=== PATIENT | female | born 1955 | race Caucasian/White ===

== ENCOUNTER → 2017-05-12 | Outpatient (CLI) | payer MEDICARE ==
[2017-05-12 19:40] LABS: THYROID STIMULATING HORMONE 3.16 uIU/mL (0.34-5.60)
== END ==
LOC: LAB.R 08:00
PROVIDERS: ATTEND Family Medicine
DX: R63.4 Abnormal weight loss (principal)
CPT/HCPCS: 36415; 84439; 84443; 84481; G0475; 84436; 84480; 87389

== ENCOUNTER 2017-07-15 11:20 | Outpatient (CLI) | payer MEDICARE ==
[2017-07-16 18:46] LABS: TEST RESULT REPORT
== END 2017-07-15 11:21 | disposition home or self-care (01) ==
LOC: LAB.R 11:20
PROVIDERS: ATTEND Family Medicine
DX: R19.7 Diarrhea, unspecified (principal)
CPT/HCPCS: 81599; 83630; 87045; 87046; 87177; 87209; 87329; 87493

== ENCOUNTER 2018-02-09 08:00 | Outpatient (CLI) | payer MEDICARE ==
[2018-02-09 18:59] LABS: MEAN CORPUSCULAR HEMOGLOBIN 29.3 pg (27.0-31.0); MEAN CORPUSCULAR HGB CONC 32.1 g/dL (32.0-36.0); MEAN CORPUSCULAR VOLUME 91.2 fL (81.0-99.0); MEAN PLATELET VOLUME 8.3 fL (7.9-10.8); RED BLOOD COUNT 4.11 10^6/uL (4.20-5.40); RED CELL DISTRIBUTION WIDTH 15.2 % (12.0-15.0); WHITE BLOOD COUNT 9.5 x10^3/uL (4.8-10.8)
[2018-02-09 19:27] LABS: RHEUMATOID FACTOR POSITIVE (Negative)
== END 2018-02-09 08:01 | disposition home or self-care (01) ==
LOC: LAB.WCP 08:00
PROVIDERS: ATTEND Family Medicine
DX: M25.462 Effusion, left knee (principal); M79.7 Fibromyalgia; M06.9 Rheumatoid arthritis, unspecified
CPT/HCPCS: 36415; 85027; 85651; 86140; 86200; 86430

== ENCOUNTER 2021-05-29 10:35 | Outpatient (CLI) | payer MEDICARE ==
[2021-05-29 17:45] LABS: BASOPHILS # (AUTO) 0.1 10^3/uL (0.0-0.1); BASOPHILS % (AUTO) 0.8 %; EOSINOPHILS # (AUTO) 0.1 10^3/uL (0.0-0.7); EOSINOPHILS % (AUTO) 0.6 %; HCT - HEMATOCRIT 40.7 % (37.0-47.0); HGB - HEMOGLOBIN 12.1 g/dL (12.0-16.0); LYMPHOCYTES # (AUTO) 1.6 10^3/uL (1.5-3.5); LYMPHOCYTES % (AUTO) 20.5 %; MEAN CORPUSCULAR HEMOGLOBIN 31.7 pg (27.0-31.0); MEAN CORPUSCULAR HGB CONC 29.7 g/dL (32.0-36.0); MEAN CORPUSCULAR VOLUME 106.5 fL (81.0-99.0); MEAN PLATELET VOLUME 11.2 fL (7.9-10.8); MONOCYTES # (AUTO) 0.5 10^3/uL (0.0-1.0); MONOCYTES % (AUTO) 6.8 %; NEUTROPHILS # (AUTO) 5.7 10^3/uL (1.5-6.6); PLT - PLATELET COUNT 413 10^3/uL (130-450); RED BLOOD COUNT 3.82 10^6/uL (4.20-5.40); RED CELL DISTRIBUTION WIDTH 17.2 % (12.0-15.0)
[2021-05-29 18:35] LABS: ALBUMIN 3.3 g/dL (3.2-5.5); ALBUMIN/GLOBULIN RATIO 0.7 (1.0-2.2); BILIRUBIN,TOTAL 0.5 mg/dL (0.2-1.0); CALCIUM 8.8 mg/dL (8.5-10.3); CREATININE 0.5 mg/dL (0.4-1.0); CRP - C-REACTIVE PROTEIN 5.6 mg/dL (0-1.0); POTASSIUM 4.1 mmol/L (3.5-5.0); TOTAL PROTEIN 8.3 g/dL (6.7-8.2)
== END 2021-05-29 23:59 | disposition home or self-care (01) ==
LOC: LAB.WCP 10:35
PROVIDERS: ATTEND Family Medicine
DX: M06.9 Rheumatoid arthritis, unspecified (principal)
CPT/HCPCS: 36415; 80053; 85025; 85651; 86140

== ENCOUNTER 2021-07-09 16:16 | Outpatient (CLI) | payer MEDICARE, MEDICAID ==
--- NOTE | 2021-07-10 10:47 | XRAY Report ---
PROCEDURE: Foot 2 View BILAT INDICATIONS: RHEUMATOID ARTHRITIS TECHNIQUE: A standing AP view of both feet together as well as lateral views of each foot were acqui red. COMPARISON: Correlation is made with the accompanying plain films, 07/09/2021. FINDINGS: Bones: No fractures or dislocations. There is moderate to prominent left-sided hallux valgus deform ity. Numerous areas of erosions can be seen, particularly involving the metatarsophalangeal joints, partic ularly involving the fourth and fifth metatarsophalangeal joints of the right foot. Periarticular ost eopenia can be seen. An accessory ossicle is seen, an os trigonum on the right. Soft tissues: No tibiotalar joint effusion. Achilles tendon appears normal. IMPRESSION: Erosive changes are seen, consistent with rheumatoid arthritis. Reviewed by: Sid Jefferson MD on 07/10/2021 9:46 AM [facility] Approved by: Sid Jefferson MD on 07/10/2021 9:46 AM [facility] Station ID: [id number]
--- NOTE | 2021-07-10 10:49 | XRAY Report ---
PROCEDURE: Knee 2 View BILAT INDICATIONS: RHEUMATOID ARTHRITIS TECHNIQUE: A standing AP view of both knees together as well as lateral views of each knee were acqu ired. COMPARISON: Correlation is made with the accompanying plain films, 07/09/2021. FINDINGS: Bones: No fractures or dislocations. Articular osteopenia can be seen. Prominent joint space narrowi ng can be seen on both sides, which is worst within the lateral femoral tibial compartments. Soft tissues: Moderate joint effusions are seen, right worse than left. No suspicious soft tissue aguilar cifications. IMPRESSION: Bony changes are seen, which are consistent with the given clinical history of rheumatoi d arthritis. Reviewed by: Sid Jefferson MD on 07/10/2021 9:47 AM [facility] Approved by: Sid Jefferson MD on 07/10/2021 9:47 AM [facility] Station ID: [id number]
--- NOTE | 2021-07-10 10:50 | XRAY Report ---
PROCEDURE: Elbow 2 View RT INDICATIONS: RHEUMATOID ARTHRITIS TECHNIQUE: 2 views of the elbow were acquired. COMPARISON: Correlation is made with the accompanying plain films, 07/09/2021. FINDINGS: Bones: No fractures or dislocations. No suspicious bony lesions. Irregularity is seen of the radia l head. Generalized osteopenia is seen. Soft tissues: There is a large elbow joint effusion. No suspicious soft tissue calcifications. IMPRESSION: Large elbow joint effusion. There is osteopenia is seen, with focal irregularity of the radial head noted. Reviewed by: Sid Jefferson MD on 07/10/2021 9:49 AM [facility] Approved by: Sid Jefferson MD on 07/10/2021 9:49 AM [facility] Station ID: [id number]
--- NOTE | 2021-07-10 10:53 | XRAY Report ---
PROCEDURE: Shoulder 2 View LT INDICATIONS: RHEUMATOID ARTHRITIS TECHNIQUE: 2 views of the shoulder were acquired. COMPARISON: Correlation is made with the accompanying plain films, 07/09/2021. FINDINGS: Bones: There is severe joint space narrowing seen involving the lateral humeral joint, with bony rem odeling. The humeral head is "high riding" within the glenoid fossa. Erosive change of the distal clavicle. No fractures or dislocations. Visualized ribs appear intact. Soft tissues: No suspicious soft tissue calcifications. The visualized lung demonstrates a normal a ppearance. IMPRESSION: Advanced glenohumeral joint degenerative change is seen, with severe joint space narrowi ng with remodeling change. Erosive change is seen of the distal clavicle, which is supportive of the clinical diagnosis of rheum atoid arthritis. Reviewed by: Sid Jefferson MD on 07/10/2021 9:51 AM [facility] [place] Approved by: Sid Jefferson MD on 07/10/2021 9:51 AM [facility] [place] Station ID: [id number]
--- NOTE | 2021-07-10 10:55 | XRAY Report ---
PROCEDURE: Hand 2 View BILAT INDICATIONS: RHEUMATOID ARTHRITIS TECHNIQUE: AP view of both and signal as well as lateral views of each hand were acquired. COMPARISON: Correlation is made with the accompanying plain films, 07/09/2021. FINDINGS: Bones: Advanced erosive changes can be seen involving the carpus and the carpometacarpal joints. Dis luis fernando interphalangeal joint degenerative change can be seen, particularly involving the third and fifth fingers on the left. No fractures or dislocations. Generalized osteopenia can be seen. Soft tissues: No suspicious soft tissue calcifications. IMPRESSION: Advanced erosive changes are seen involving the carpus, with milder degenerative changes of the dista l interphalangeal joints. Advanced inflammatory arthropathy into proven otherwise. Reviewed by: Sid Jefferson MD on 07/10/2021 9:54 AM [facility] Approved by: Sid Jefferson MD on 07/10/2021 9:54 AM [facility] Station ID: [id number]
== END 2021-07-09 16:17 | disposition home or self-care (01) ==
LOC: DI.N 16:16
PROVIDERS: ATTEND Internal Medicine Rheumatology
DX: M05.79 Rheumatoid arthritis with rheumatoid factor of multiple sites without organ or systems involvement (principal); M85.88 Other specified disorders of bone density and structure, other site; M25.421 Effusion, right elbow; M19.012 Primary osteoarthritis, left shoulder; M19.042 Primary osteoarthritis, left hand; M19.041 Primary osteoarthritis, right hand

== ENCOUNTER 2022-03-09 13:58 | Outpatient (CLI) | payer MEDICARE, MEDICAID ==
--- NOTE | 2022-03-09 15:08 | DEXA Report ---
PROCEDURE: Dexa Spine and/or Hip INDICATIONS: OSTEOPOROSIS TECHNIQUE: Dual energy x-ray absorptiometry (DXA) was performed on a Pzoom System. Regions measur ed are the AP Spine, femoral neck, and if needed forearm. COMPARISON: None. FINDINGS: Lumbar Spine: Bone Mineral Density 1.2 g/cm/cm,T score 0.0, normal bone density Left Hip: Bone Mineral Density 0.5 g/cm/cm,T score -3.8, osteoporosis Left forearm: Bone Mineral Density 0.4 g/cm/cm, T score average -4.0, osteoporosis (T score greater or equal to -1.0: NORMAL) (T score from -1.1 to -2.4: OSTEOPENIA) (T score less than or equal to -2.5 to: OSTEOPOROSIS) Impression: 1. Normal lumbar spine MRI bone density. 2. Osteoporosis of the left hip and forearm. Patients with diagnosis of osteoporosis or osteopenia should have regular bone mineral density assess ment. For those eligible for Medicare, routine testing is allowed once every 2 years. Testing frequ ency can be increased for patients who have rapidly progressing disease or for those who are receivin g medical therapy to restore bone mass. Reviewed by: Yaritza Stanley MD on 03/09/2022 3:07 PM PDT Approved by: Yaritza Stanley MD on 03/09/2022 3:07 PM PDT Station ID: [id number]
== END 2022-03-09 13:59 | disposition home or self-care (01) ==
LOC: DI 13:58
PROVIDERS: ATTEND Internal Medicine Rheumatology
DX: M81.0 Age-related osteoporosis without current pathological fracture (principal)

== ENCOUNTER 2022-04-15 14:30 | Outpatient (CLI) | payer MEDICARE, MEDICAID ==
--- NOTE | 2022-04-15 17:49 | MRI Report ---
PROCEDURE: Lumbar Spine W/O INDICATIONS: LUMBAR RADICULOPATHY TECHNIQUE: Noncontrast sagittal T1 spin echo and T2 fast echo, sagittal STIR, axial T1 and T2 fast spin echo thr ough the lumbar spine. In cases with scoliosis, additional coronal T2 fast spin echo may be performe d. COMPARISON: None. FINDINGS: Image quality: Motion artifact is noted. Alignment and Curvature: There is moderate levoconvex lumbar scoliosis. Mild retrolisthesis is seen at T12-L1, L1-L2, and L2-L3. Minimal to mild anterolisthesis is seen at L3-L4. Minimal retrolisthesis is seen at L4-L5. Minimal anterolisthesis is seen at L5-S1. Bone Marrow: Marrow is of normal overall signal. No acute vertebral body compression fractures. Spinal Cord: Conus medullaris terminates at the L1 level. Visualized cord demonstrates normal signa l and size. Paraspinous Soft Tissues: No paravertebral masses. Moderate lower thoracic degenerative changes are seen. T12-L1: At least moderate loss of disc height and disc signal can be seen. Reactive marrow endplate changes are seen, which demonstrate mixed signal and are attributed to a combination of edema and fat ty metaplasia (Modic type I and Modic type II changes). Moderate disc bulge is seen, which is eccent diana to the left. A superimposed central disc protrusion is seen. Mild facet hypertrophy is seen. Mi ld to moderate bilateral neuroforaminal narrowing can be seen, left worse than right. Mild central c anal narrowing is seen. L1-L2: At least moderate loss of disc height and disc signal can be seen. Reactive marrow endplate changes are seen, which demonstrate mixed signal and are attributed to a combination of edema and fa tty metaplasia (Modic type I and Modic type II changes). Moderate disc bulge is seen at this level. Moderate facet hypertrophy is seen. There is moderate to severe left-sided and moderate right-si ded neuroforaminal narrowing. Mild to moderate central canal narrowing is seen. L2-L3: Moderate to severe loss of disc height and disc signal can be seen on the right side. Bridg ing endplate osteophytes are seen on the right. Moderate loss of disc height and signal are seen. Moderate facet hypertrophy is seen. There is moderate to severe right-sided and mild left-sided neur oforaminal narrowing. Mild to moderate central canal narrowing is seen. L3-L4: Mild loss of disc height and disc signal are seen. Moderate disc bulge is seen, which is ecc entric to the right. A superimposed central disc protrusion is seen. Moderate to prominent facet hyp ertrophy is seen. Associated hypertrophy of the ligamentum flavum can be seen. There is moderate bi lateral neuroforaminal narrowing seen. Moderate central canal narrowing is seen. L4-L5: Moderate to severe loss of disc height and disc signal can be seen. Moderate disc bulge is seen at this level. Reactive marrow endplate changes are seen, which demonstrate mixed signal and ar e attributed to a combination of edema and fatty metaplasia (Modic type I and Modic type II changes). At least moderate facet hypertrophy is seen. There is moderate to severe left-sided and at least mo derate right-sided neuroforaminal narrowing. Compression is seen upon the exiting nerve roots. Mild central canal narrowing is seen. L5-S1: Mild loss of disc height and disc signal are seen. Mild disc bulge is seen. Mild to modera te facet hypertrophy is seen. There is mild right-sided and moderate left-sided neuroforaminal narrow ing seen. Minimal central canal narrowing is seen. IMPRESSION: Multiple levels of relatively prominent lumbar spine degenerative change are seen. Moderate levoconvex lumbar scoliosis. Reviewed by: Sid Jefferson MD on 04/15/2022 4:47 PM [facility] Approved by: Sid Jefferson MD on 04/15/2022 4:47 PM [facility] Station ID: [id number]
== END 2022-04-15 14:31 | disposition home or self-care (01) ==
LOC: DI 14:30
PROVIDERS: ATTEND Internal Medicine Rheumatology
DX: M43.15 Spondylolisthesis, thoracolumbar region (principal); M43.16 Spondylolisthesis, lumbar region; M43.17 Spondylolisthesis, lumbosacral region; M51.15 Intervertebral disc disorders with radiculopathy, thoracolumbar region; M48.05 Spinal stenosis, thoracolumbar region; M47.26 Other spondylosis with radiculopathy, lumbar region; M47.27 Other spondylosis with radiculopathy, lumbosacral region; M51.16 Intervertebral disc disorders with radiculopathy, lumbar region; M48.061 Spinal stenosis, lumbar region without neurogenic claudication; M51.37 Other intervertebral disc degeneration, lumbosacral region; M48.07 Spinal stenosis, lumbosacral region

== ENCOUNTER 2022-07-03 12:57 | Outpatient (CLI) | payer MEDICARE, MEDICAID ==
--- NOTE | 2022-07-03 17:07 | XRAY Report ---
PROCEDURE: Cervical Spine 2 View INDICATIONS: NECK PAIN TECHNIQUE: 4 view(s) of the cervical spine were acquired. COMPARISON: None. FINDINGS: Bones: No fractures or dislocations to the T1 level. There is reversal of normal cervical lordosis. 5 mm anterolisthesis of C3 on C4 is seen. 2 mm anterolisthesis of C2 on C3 is also noted. Loss of di sc height, degenerative endplate changes and bilateral facet hypertrophic changes throughout cervical spine is seen. The lateral masses of C1 appear intact on the odontoid view. No suspicious bony lesi ons. Soft tissues: No prevertebral soft tissue swelling. IMPRESSION: No acute cervical spine fracture or dislocation. Grade 1 anterolisthesis at C2-3 and C3- 4 levels. Moderate to severe degenerative disc disease throughout cervical spine as above. Reviewed by: Joaquim Orlando MD on 07/03/2022 5:05 PM PST Approved by: Joaquim Orlando MD on 07/03/2022 5:05 PM PST Station ID: [id number]
== END 2022-07-03 12:58 | disposition home or self-care (01) ==
LOC: DI 12:57
PROVIDERS: ATTEND Internal Medicine Rheumatology
DX: M43.12 Spondylolisthesis, cervical region (principal); M50.31 Other cervical disc degeneration, high cervical region; M47.812 Spondylosis without myelopathy or radiculopathy, cervical region; M06.9 Rheumatoid arthritis, unspecified

== ENCOUNTER 2023-05-25 08:00 | Outpatient (CLI) | payer MEDICARE, MEDICAID ==
--- NOTE | 2023-05-26 11:09 | XRAY Report ---
PROCEDURE: Knee 4 View BILAT INDICATIONS: BILAT KNEE PAIN TECHNIQUE: 4 views of the both knee(s) were acquired. COMPARISON: 07/09/2021 FINDINGS: Bones: Severe bilateral degenerative changes, involving all 3 compartments, particularly the right me dial and left lateral. There are subchondral lucencies, articular surface irregularity, and osteopeni a. Findings could represent sequelae of prior inflammatory arthropathy with secondary osteoarthritis. Soft tissues: Small joint effusions bilaterally. IMPRESSION: Severe bilateral degenerative changes, with subchondral irregularity and lucencies, possibly also seq uelae of prior inflammatory arthropathy with secondary osteoarthritis. Small joint effusions reynaldoatera lly. Reviewed by: Rico Joyner MD on 05/26/2023 11:07 AM PDT Approved by: Rico Joyner MD on 05/26/2023 11:07 AM PDT Station ID: [id number]
== END 2023-05-25 23:59 | disposition home or self-care (01) ==
LOC: DI.WOS 08:00
PROVIDERS: ATTEND Orthopaedic Surgery
DX: M17.0 Bilateral primary osteoarthritis of knee (principal); M25.461 Effusion, right knee; M25.462 Effusion, left knee